=== PATIENT | male | born 1985 | race Caucasian/White ===

== ENCOUNTER → 2024-05-25 14:48 | Outpatient (REF) | payer OTHER, SELFPAY | LOC: HWRAD 14:48 | PROVIDERS: ATTENDING PHYSICIAN Nurse Practitioner Family | DX: K74.2 Hepatic fibrosis with hepatic sclerosis (principal) | CPT/HCPCS: 76700 ==

== ENCOUNTER → 2024-05-31 12:56 | Outpatient (REF) | payer OTHER, SELFPAY | LOC: HWRCS 12:56 | PROVIDERS: ATTENDING PHYSICIAN Nurse Practitioner Family | DX: R01.1 Cardiac murmur, unspecified (principal) | CPT/HCPCS: 93306 ==